=== PATIENT | female | born 2000 | race Two or more races ===

== ENCOUNTER 2024-04-14 12:48 | Emergency (ER) | payer OTHER, SELFPAY ==
--- NOTE | 2024-04-14 13:32 | XR_ITS ---
Examination: PA lateral chest 2 views TECHNIQUE: Upright PA lateral chest 2 views Exam date and time: April 14, 2024 1357 hours Comparison February 28, 2009 INDICATIONS: Coughing beginning one week ago. FINDINGS: Normal heart size Lungs are clear. Osseous structures are intact IMPRESSION: No active disease
[2024-04-14 13:35] VITALS: BP 138/88; PULSE 95; RESP 18; TEMP 37.1; O2SAT 98; BMI 30.2
--- NOTE | 2024-04-14 15:32 | EDNOTE_ITS ---
ED SOB =RME/HPI General Chief Complaint: Shortness of Breath/Dyspnea Stated Complaint: SOB CAN'T BREATH ; HX ASTHMA Time Seen by Provider: 04/14/24 13:10 Arrival date/time: 04/14/24 12:48 23-year-old female with history of asthma presents emergency department today for complaints of cough, congestion, wheezing, runny nose ongoing for last couple of days Limitations: no limitations Related Data Previous Rx's ?Medication ?Instructions ?Recorded cephalexin 500 mg capsule (Keflex) 500 mg PO BID #14 caps 08/07/19 albuterol sulfate 90 mcg/actuation 2 puff inhalation Q6H PRN 04/14/24 aerosol inhaler (Ventolin HFA) shortness of breath or wheezing #8.5 grams benzonatate 100 mg capsule 100 mg PO TID #14 caps 04/14/24 prednisone 10 mg tablet 30 mg (3 x 10 mg) PO BID 3 days 04/14/24 #18 tabs Allergies Allergy/AdvReac Type Severity Reaction Status Date / Time No Known Allergies Allergy Verified 04/14/24 12:49 Review of Systems Review of Systems Systems Reviewed: All systems reviewed, normal except as documented Constitutional Constitutional: Reports system reviewed and no additional complaints, except as documented, Denies fever(s) and Denies headache(s) Eyes Eyes: Reports system reviewed and no additional complaints, except as documented and Denies blurry vision ENT Ears, Nose, Mouth, and Throat: Reports system reviewed and no additional complaints, except as documented, Denies headache(s), Reports nasal congestion and Reports nasal discharge Cardiovascular Cardiovascular: Reports system reviewed and no additional complaints, except as documented, Denies chest pain and Denies dyspnea Respiratory Respiratory: Reports system reviewed and no additional complaints, except as documented, Reports chest congestion, Reports cough and Denies dyspnea Gastrointestinal Gastrointestinal: Reports system reviewed and no additional complaints, except as documented and Denies abdominal pain Integumentary/Breasts Skin/Breast: Reports system reviewed and no additional complaints, except as documented and Denies rash Neurologic Neurologic: Reports system reviewed and no additional complaints, except as documented, Reports as per HPI and Denies headache(s) Past Medical History Past Medical History NEUROLOGIC: Negative Neurological Disorders CARDIAC: Negative Cardiac Disorders Social History SMOKING STATUS: Never smoker ED Exam General Limitations: Present no limitations General appearance: Present alert and in no apparent distress Head Head exam: Present atraumatic Eye Eye exam: Present normal appearance, PERRL and EOMI; Absent conjunctival injection ENT ENT exam: Present normal exam, normal oropharynx and mucous membranes moist Neck Neck exam: Present normal inspection, full ROM and trachea midline Chest Chest inspection: Present normal inspection and symmetric chest wall rise Respiratory Respiratory exam: Present normal lung sounds bilaterally; Absent respiratory distress, wheezes, stridor, accessory muscle use or prolonged expiratory phase Cardiovascular Cardiovascular exam: Present regular rate, normal rhythm and normal heart sounds Abdominal Exam Abdominal exam: Present soft and normal bowel sounds Extremities Exam Extremities exam: Present normal inspection and full ROM Back Exam Back exam: Present normal inspection and full ROM Neurological Exam Neurological exam: Present alert, oriented X3 and CN II-XII intact Psychiatric Psychiatric exam: Present normal affect and normal mood Skin Skin exam: Present warm, dry, intact and normal color Course Quality Measures none Orders Category Date Time Status Bedside COVID-19 Antigen Test NOW Care 04/14/24 13:32 Completed Bedside Influenza A&B Antigen Test NOW Care 04/14/24 13:32 Completed XR chest 2V Stat Exams 04/14/24 13:32 Completed Vital Signs Vital signs: Vital Signs Temperature 98.7 F 04/14/24 13:35 Pulse Rate 95 04/14/24 13:35 Respiratory Rate 18 04/14/24 13:35 Blood Pressure 138/88 H 04/14/24 13:35 Pulse Oximetry (%) 98 04/14/24 13:35 Oxygen Delivery Method Room Air 04/14/24 13:35 o2 sat 98% r/a wnl Shortness of Breath / Dyspnea MDM Narrative MDM Narrative:: 23-year-old female with history of asthma presents emergency department today for complaints of cough, congestion, wheezing, runny nose ongoing for last couple of days On exam patient well-appearing patient does not appear ill or toxic in no acute distress patient has no active wheezing at this time no tachypnea no dyspnea no increased work of breathing Patient checked for flu and COVID both of which are negative chest x-ray obtained no pneumonic infiltrates noted Patient discharged home in no distress to follow-up with primary care doctor in the next 24 to 48 hours and for any worsening symptoms to return to the ER immediately Patient data External records reviewed:: [facility] previous records Clinical information provided by:: patient Social determinants that could affect healthcare access:: none Patient has the following chronic illnesses:: asthma How is presenting disease/condition affected by chronic disease/condition?: no chronic disease Evaluation data The following diagnostics were reviewed and interpreted by me:: lab results and radiology exam(s) Lab and/or radiology exams considered but not ordered:: Labs and radiology obtained Interpretation Summary: Reviewed by me Medications / Prescriptions Medications or Prescriptions considered but not ordered:: Given Rx Medication administrations:: Given Consultations Consultation(s) initiated? (list below): No Diagnosis Shortness of Breath Differential Diagnosis: acute exacerbation of chronic obstructive airways disease, congestive heart failure, community acquired pneumonia and asthma with exacerbation Most likely diagnosis given after review of the tests above:: Asthma Admission Indicated Admission indicated?: not indicated Admission Request Was there a request for admission?: No Disposition Plan Disposition Plan: Discharge Discharge Attestation Discharge Attestation: The patient and all family members were given an opportunity to ask questions and understood the discharge instructions. Discharge instructions specifically effects, indications for sooner follow up or return to the emergency department, and the expected course of current diagnosis. Patient condition: Stable Discharge Plan Plan Patient Disposition: HOME (Self Care) Disposition Comment: Stable Prescriptions/Referrals Prescriptions/Med Rec: New prednisone 10 mg tablet 30 mg PO BID 3 Days Qty: 18 0RF albuterol sulfate [Ventolin HFA] 90 mcg/actuation HFA aerosol inhaler 2 puff inhalation Q6H PRN (Reason: shortness of breath or wheezing) Qty: 8.5 0RF benzonatate 100 mg capsule 100 mg PO TID Qty: 14 0RF No Action cephalexin [Keflex] 500 mg capsule 500 mg PO BID Qty: 14 0RF Referrals: Javier Cabrera PA-C [Primary Care Provider] - In 1 week Problem List Clinical Impression: URI (upper respiratory infection) Patient/Caregiver Discharge Instructions Education Materials: ED URI, Viral, No Abx (Adult) Additional Instructions: Please follow up with your primary care doctor in the next 24-48hrs for any worsening symptoms return here immediately Print Language: Dominican Stand Alone Forms: Umm Award Info., Work/School Release, Patient Portal Info Letter Attestation Attestation The patient was seen by the midlevel practitioner. I, the co-signing physician, was present during the entire ER visit. While I did not physically examine the patient, I was available for consultation as needed.
== END 2024-04-14 15:38 | disposition home or self-care (01) ==
PROVIDERS: Emergency Provider Emergency Medicine; PCP Physician Assistant
DX: J06.9 Acute upper respiratory infection, unspecified (principal)
CPT/HCPCS: 71046; 87400; 87811; 99283

== ENCOUNTER 2024-11-29 19:25 | Emergency (ER) | payer OTHER, SELFPAY ==
[2024-11-29 19:27] VITALS: BMI 29.9
[2024-11-29 19:37] VITALS: BP 131/84; PULSE 90; RESP 18; TEMP 37.6; O2SAT 98
--- NOTE | 2024-11-29 19:52 | XR_ITS ---
Examination: CT maxillofacial, with contrast 2-D sagittal and coronal reconstructions. 3-D reconstructions Date and time of exam:November 29, 2024 2113 hours INDICATIONS: Surgery to remove tonsils and repair dated septum November 25, 2023, fever CTDI: vol (mGy):25.3 DLP: (mGycm):503 Technique: Multiple axial images maxillofacial region, 3.0 mm slice thickness, post intravenous injection 60 cc Isovue-370 cc Isovue 370. 2-D sagittal coronal reconstructions. 3-D reconstructions Low dose protocols were performed. One or more of the following dose reduction techniques were used; automated exposure control, adjustment of the mA and/or KV according to patient size, use of iterative reconstruction technique. Findings: The optic globes exhibit symmetry Prominent right ethmoid and right sphenoid sinusitis Maxillary antra are clear Fluid in the nasopharynx No tonsillar abscess Nasal septum is no longer angulated, fracture in its midportion without displacement Multiple submental and carotid triangle lymph nodes The larynx appears normal Symmetrical thyroid lobes IMPRESSION: Prominent right ethmoid and right sphenoid sinusitis Opacification in the right nasal airway Mild fluid in the nasopharynx, clinical correlation is advised Submental and carotid triangle lymphadenopathy, recommend three-month follow-up ultrasound soft tissue neck
--- NOTE | 2024-11-29 19:52 | XR_ITS ---
Examination: PA chest single view Technique upright PA chest single view Date and time: November 29, 2024 2156 hours INDICATIONS: Weakness and fever one week FINDINGS: Normal heart size. No pneumonia or pulmonary edema. The osseous structures are intact IMPRESSION: No active disease.
[2024-11-29 20:16] LABS: Basophils # (Auto) 0.1 Thou/mm3 (0.0-0.2); Basophils % (Auto) 0 % (0-2.5); Eosinophils # (Auto) 0.3 Thou/mm3 (0.0-0.5); Eosinophils % (Auto) 2 % (0-10); Hematocrit 36.3 % (36.0-46.0); Hemoglobin 12.9 g/dL (12.0-16.0); Immature Granulocytes Auto 0.04 Thou/mm3 (0.00-0.00); Lymphocytes # (Auto) 4.6 Thou/mm3 (1.0-4.8); Lymphocytes % (Auto) 33 % (10-50); Mean Corpuscular HGB Conc 35.5 g/dl (31.0-37.0); Mean Corpuscular Hemoglobin 29.9 pg (25.0-35.0); Mean Corpuscular Volume 84 fL (80-100); Monocytes # (Auto) 1.0 Thou/mm3 (0.0-0.8); Monocytes % (Auto) 7 % (0-12); Neutrophils # (Auto) 7.9 Thou/mm3 (1.8-7.7); Neutrophils % (Auto) 57 % (37-80); Nucleated Red Blood Cell # 0.00 Thou/mm3 (0.00-0.00); Nucleated Red Blood Cell % 0 /100 WBC (0); Platelet Count 400 Thou/mm3 (140-440); RDW Standard Deviation 40.5 fL (36.4-46.3); Red Blood Count 4.31 Miln/mm3 (4.00-5.20); White Blood Count 13.9 Thou/mm3 (3.6-11.0)
[2024-11-29 20:32] LABS: Alanine Aminotransferase 48 U/L (10-49); Albumin, Serum 5.1 gm/dL (3.5-5.0); Albumin/Globulin Ratio 2.0 (1.2-2.2); Alkaline Phosphatase 47 U/L (46-116); Anion Gap 13 (7-16); Aspartate Amino Transferase 29 U/L (0-34); BUN/Creatinine Ratio 7 Ratio (12-20); Bilirubin,Total 0.4 mg/dL (0.3-1.2); Blood Urea Nitrogen < 5 mg/dL (9-23); Calcium 9.8 mg/dL (8.3-10.6); Calcium (Corrected) 9.8 mg/dL (8.5-10.1); Carbon Dioxide 27.1 mMol/L (20.0-31.0); Chloride 100 mMol/L (98-107); Creatinine (Component) 0.7 mg/dL (0.6-1.3); Estimated Creatinine Clearance 115.0 mL/min (>60); Globulin 2.5 gm/dL (2.3-3.5); Glucose 103 mg/dL (74-106); Osmolality,Calculated 276 (275-295); Potassium 3.2 mMol/L (3.4-5.1); Sodium 140 mMol/L (136-145); Total Protein 7.6 gm/dL (5.7-8.2); eGFR > 60 See Note
[2024-11-29 20:36] LABS: Collection Type, Urine Voided
[2024-11-29 20:40] LABS: Bacteria,Urine Rare; Bilirubin,Urine Negative (Negative); Blood,Urine 1+ (Negative); Clarity,Urine Clear (Clear/Hazy); Color,Urine Colorless (Lt Yel-Yel); Glucose, Urine Negative (Negative); Ketones,Urine Negative (Negative); Leukocyte Esterase,Urine Negative (Negative); Nitrite,Urine Negative (Negative); PH,Urine 6.0 (5.0-7.0); Protein,Urine Negative (Neg - Trace); RBC,Urine 1 /hpf (0-3); Specific Gravity,Urine 1.008 (1.001-1.035); Squamous Epithelial Cell,Urine 2 /hpf (0-5); Urobilinogen,Urine Negative mg/dL (0.0-1.0); WBC,Urine 1 /hpf (0-5)
[2024-11-29 20:56] LABS: HCG,Qualitative Serum Negative
[2024-11-29] MEDS: SODIUM CHLORIDE 0.9% 1000 ML 1,000 ML 999 ML IV (22:31)
[2024-11-29 22:32] VITALS: TEMP 37.1
--- NOTE | 2024-11-29 22:33 | PD.EDFEVER ---
ED Fever RME/HPI General Chief Complaint: Fever Stated Complaint: , FEVER, HEAD PRESSURE Time Seen by Provider: 11/29/24 19:33 Source: patient Arrival date/time: 11/29/24 19:25 This is a case of 24-year-old female who came in in the emergency room due to fever today ranging 101 patient had a deviated nasal septum surgery and tonsillectomy last Saturday and currently taking amoxicillin patient was fine after surgery until today patient started to have fever and chills persistence of the symptoms this patient decided to sought consult here in the emergency Limitations: no limitations Related Data Previous Rx's ?Medication ?Instructions ?Recorded cephalexin 500 mg capsule (Keflex) 500 mg PO BID #14 caps 08/07/19 albuterol sulfate 90 mcg/actuation 2 puff inhalation Q6H PRN 04/14/24 aerosol inhaler (Ventolin HFA) shortness of breath or wheezing #8.5 grams benzonatate 100 mg capsule 100 mg PO TID #14 caps 04/14/24 amoxicillin 875 mg-potassium 1 tab PO BID 10 days #20 tabs 11/29/24 clavulanate 125 mg tablet ibuprofen 800 mg tablet 800 mg PO Q8H PRN pain #20 tabs 11/29/24 ondansetron 4 mg disintegrating 4 mg PO Q8H PRN nausea and 11/29/24 tablet vomiting #20 tabs Allergies Allergy/AdvReac Type Severity Reaction Status Date / Time No Known Allergies Allergy Verified 11/29/24 19:26 Review of Systems Review of Systems Systems Reviewed: All systems reviewed, normal except as documented Constitutional Constitutional: Reports system reviewed and no additional complaints, except as documented, Reports as per HPI, Denies anorexia, Denies body ache(s), Reports chills, Denies daytime sleepiness, Denies difficulty sleeping, Denies excessive sweating, Denies fatigue, Reports fever(s), Denies frequent falls, Reports headache(s), Denies increased appetite, Denies poor appetite, Denies lethargy, Denies malaise, Denies night sweats, Denies snoring, Denies stops breathing during sleep, Denies weakness, Denies weight gain and Denies weight loss ENT Ears, Nose, Mouth, and Throat: Reports system reviewed and no additional complaints, except as documented, Reports headache(s), Denies nasal discharge, Denies nasal obstruction, Denies nasal trauma, Denies neck mass, Denies neck pain, Denies nose pain, Denies odynophagia, Denies post nasal drip, Denies sinus pain, Denies sinus pressure, Denies sore throat, Denies throat swelling, Denies tinnitus, Denies tongue swelling and Denies vertigo Cardiovascular Cardiovascular: Reports system reviewed and no additional complaints, except as documented, Reports as per HPI and Denies dyspnea Respiratory Respiratory: Reports system reviewed and no additional complaints, except as documented, Reports as per HPI, Denies cough, Denies dyspnea and Denies snoring Gastrointestinal Gastrointestinal: Reports system reviewed and no additional complaints, except as documented, Reports as per HPI and Denies odynophagia Musculoskeletal Musculoskeletal: Denies neck pain Neurologic Neurologic: Reports system reviewed and no additional complaints, except as documented, Denies frequent falls, Reports headache(s), Denies vertigo and Denies weakness Endocrine Endocrine: Denies excessive sweating and Denies fatigue Allergic/Immunologic Allergic/Immunologic: Denies throat swelling and Denies tongue swelling Past Medical History Past Medical History NEUROLOGIC: Negative Neurological Disorders CARDIAC: Negative Cardiac Disorders RESPIRATORY: Positive Asthma GENITOURINARY: Negative Renal Disease ENDOCRINE: Negative Diabetes Mellitus Type 2 HEMATOLOGIC: Negative Sickle Cell Disease Social History SMOKING STATUS: Never smoker Physical Exam General Limitations: no limitations General appearance: alert, in no apparent distress and other (Patient is awake alert oriented not in distress nontoxic looking well-hydrated well-nourished) Head Head exam: atraumatic, normocephalic and normal inspection Eye Eye exam: Present normal appearance, PERRL, EOMI and other (no pappieldema) ENT ENT exam: Present normal exam, normal oropharynx, mucous membranes moist and other (Ear is normal noted a stent under both nostrils unable to visualize turbinates no bleeding no frontal or maxillary sinus tenderness no nasal polyps patient throat no bleeding absence of tonsils uvula midline neck red pharynx no drooling of saliva no muffled voice) Neck Neck exam: Present normal inspection, full ROM, trachea midline and other (Negative for meningeal sign) Chest Chest inspection: Present normal inspection and symmetric chest wall rise Respiratory Respiratory exam: Present normal lung sounds bilaterally; Absent respiratory distress, wheezes, stridor, accessory muscle use or prolonged expiratory phase Cardiovascular Cardiovascular exam: Present regular rate, normal rhythm and normal heart sounds; Absent bradycardia, tachycardia, irregular rhythm, systolic murmur or diastolic murmur Abdominal Exam Abdominal exam: Present soft and normal bowel sounds; Absent distention, tenderness, guarding, rebound, rigidity, diminished bowel sounds or hyperactive bowel sounds Extremities Exam Extremities exam: Present normal inspection and full ROM Back Exam Back exam: Present normal inspection and full ROM Neurological Exam Neurological exam: Present alert, oriented X3, CN II-XII intact, normal gait and reflexes normal; Absent motor sensory deficit Psychiatric Psychiatric exam: Present normal affect and normal mood Skin Skin exam: Present warm, dry, intact and normal color ED Exam General Limitations: Present no limitations General appearance: Present alert, in no apparent distress and other (Patient is awake alert oriented not in distress nontoxic looking well-hydrated well-nourished) Head Head exam: Present atraumatic, normocephalic and normal inspection Eye Eye exam: Present normal appearance, PERRL, EOMI and other (no pappieldema) ENT ENT exam: Present normal exam, normal oropharynx, mucous membranes moist and other (Ear is normal noted a stent under both nostrils unable to visualize turbinates no bleeding no frontal or maxillary sinus tenderness no nasal polyps patient throat no bleeding absence of tonsils uvula midline neck red pharynx no drooling of saliva no muffled voice) Neck Neck exam: Present normal inspection, full ROM, trachea midline and other (Negative for meningeal sign) Chest Chest inspection: Present normal inspection and symmetric chest wall rise Respiratory Respiratory exam: Present normal lung sounds bilaterally; Absent respiratory distress, wheezes, stridor, accessory muscle use or prolonged expiratory phase Cardiovascular Cardiovascular exam: Present regular rate, normal rhythm and normal heart sounds; Absent bradycardia, tachycardia, irregular rhythm, systolic murmur or diastolic murmur Abdominal Exam Abdominal exam: Present soft and normal bowel sounds; Absent distention, tenderness, guarding, rebound, rigidity, diminished bowel sounds or hyperactive bowel sounds Extremities Exam Extremities exam: Present normal inspection and full ROM Back Exam Back exam: Present normal inspection and full ROM Neurological Exam Neurological exam: Present alert, oriented X3, CN II-XII intact, normal gait and reflexes normal; Absent motor sensory deficit Psychiatric Psychiatric exam: Present normal affect and normal mood Skin Skin exam: Present warm, dry, intact and normal color Course Quality Measures none Orders Category Date Time Status CT Screening NOW Care 11/29/24 19:52 Active IV [Insert IV] NOW Care 11/29/24 20:[address] facial bones w con Stat Exams 11/29/24 19:52 Completed XR chest 1V portable Stat Exams 11/29/24 19:52 Completed CBC Stat Lab 11/29/24 20:04 Completed CMP [Comprehensive Metabolic Panel] Stat Lab 11/29/24 20:04 Completed HCG,Qualitative Serum Stat Lab 11/29/24 20:04 Completed Urinalysis Stat Lab 11/29/24 20:23 Completed Ketorolac Inj [Toradol Inj] Med 11/29/24 22:36 Discontinued 30 mg IVP X1 ONE Potassium Chloride [K-Dur] Med 11/29/24 22:32 Discontinued 40 meq PO X1 ONE Sodium Chloride 0.9% 1000 ml [Ns] 1,000 ml Med 11/29/24 22:27 Active IV 999 mls/hr cefTRIAXone/D5w 1gm IV premix [Rocephin/D5w 1gm IV Med 11/29/24 22:28 Active premix] 1 gm in 50 ml IV X1 Vital Signs Vital signs: Vital Signs Temperature 99.6 F 11/29/24 19:37 Pulse Rate 90 11/29/24 19:37 Respiratory Rate 18 11/29/24 19:37 Blood Pressure 131/84 H 11/29/24 19:37 Pulse Oximetry (%) 98 11/29/24 19:37 Oxygen Delivery Method Room Air 11/29/24 19:37 Patient is afebrile not tachycardic not tachypneic BP stable not hypoxic oxygen saturation is 98% in room air Fever MDM Narrative MDM Narrative:: This is a case of 24-year-old female who came in in the emergency room due to fever today ranging 101 patient had a deviated nasal septum surgery and tonsillectomy last Saturday and currently taking amoxicillin patient was fine after surgery until today patient started to have fever and chills persistence of the symptoms this patient decided to sought consult here in the emergency patient is awake alert oriented not in distress nontoxic looking well-hydrated well-nourished negative for meningeal sign vital signs are patient is afebrile nontachycardic nontachypneic BP stable not hypoxic oxygen saturation is 96% HEENT exam noted a stent on both nostrils no bleeding no nasal swelling no frontal or maxillary tenderness absence of tonsils but no bleeding no lesion in the mouth no drooling of saliva no hoarseness or muffled voice lungs sound is clear no crackles no rales no retraction no stridor abdominal soft no guarding no rebound no rigidity overall patient has no signs and symptoms sepsis no signs and symptoms of hypoxia no signs and symptoms of bacteremia blood test showed leukocytosis at 13.9 possibly due to sinusitis patient is not anemic platelets is normal patient potassium is 3.2 patient was given potassium oral here and she will follow-up with PCP to repeat the level as an outpatient patient sodium is normal kidney and liver function is normal urinalysis is normal chest x-ray is normal patient was given a bolus of normal saline and the Rocephin for sinusitis patient CT scan of the facial no abscess but with sinusitis and lymphadenopathy patient was discharged with Augmentin ibuprofen and Zofran for fever and nausea patient will follow-up with his surgeon tomorrow for reevaluation and follow-up patient will follow up with PCP in 2 days for evaluation and for any worsening symptoms she will return in the emergency room immediately or call 911 Patient was discharged with comfortable condition walking with stable gait. Patient verbalized no further complains explained diagnosis and answered patient question. Patient is comfortable with the proposed management plan including the need to follow up with his/her primary care physician and any specialist if applicable Discussed patient for any urgent condition or worsening sx, He/She needed to go to emergency room immediately or call 911. Patient acknowledge the responsibility to follow up as instructed and to monitor her/his symptoms. For any persistence of the symptoms for more than 3-5 days return precaution advised. Discussed the result of the test and was given printed discharge instruction Patient data External records reviewed:: [facility] previous records Clinical information provided by:: patient Social determinants that could affect healthcare access:: none Patient has the following chronic illnesses:: None How is presenting disease/condition affected by chronic disease/condition?: no chronic disease Evaluation data The following diagnostics were reviewed and interpreted by me:: lab results and radiology exam(s) Lab and/or radiology exams considered but not ordered:: Reviewed Interpretation Summary: Reviewed Medications / Prescriptions Medications or Prescriptions considered but not ordered:: Given Medication administrations:: Medication Administration History Sodium Chloride (Ns) 1,000 mls @ 999 mls/hr IV .Q1H1M ONE Stop: 11/29/24 23:27 Last Admin: 11/29/24 22:31 Dose: 999 mls/hr Documented By: CVL Ceftriaxone Sodium/Dextrose (Rocephin/D5w 1gm Iv Premix) 1 gm in 50 mls @ 100 mls/hr IV X1 ONE Stop: 11/29/24 22:57 Last Admin: 11/29/24 22:35 Dose: 100 mls/hr Documented By: CVL Discontinued Medications Ketorolac Tromethamine (Ketorolac Inj 30 Mg/Ml Vial) 30 mg IVP X1 ONE Stop: 11/29/24 22:37 Potassium Chloride (Potassium Chloride 20 Meq Tabcr) 40 meq PO X1 ONE Stop: 11/29/24 22:33 Given Consultations Consultation(s) initiated? (list below): No Diagnosis Fever Differential Diagnosis: fever of unknown origin, pyelonephritis, viral infection and influenza Most likely diagnosis given after review of the tests above:: Acute sinus infection Admission Indicated Admission indicated?: not indicated Explain why admission is indicated or not indicated:: Not indicated Admission Request Was there a request for admission?: No Admission Attestation Admission request attestation: Not indicated Disposition Plan Disposition Plan: Discharge Discharge Attestation Discharge Attestation: The patient and all family members were given an opportunity to ask questions and understood the discharge instructions. Discharge instructions specifically effects, indications for sooner follow up or return to the emergency department, and the expected course of current diagnosis. Patient condition: Stable Discharge Plan Plan Patient Disposition: HOME (Self Care) Patient condition on transfer: Stable Prescriptions/Referrals Prescriptions/Med Rec: New amoxicillin-pot clavulanate 875-125 mg tablet 1 tab PO BID 10 Days Qty: 20 0RF ibuprofen 800 mg tablet 800 mg PO Q8H PRN (Reason: pain) Qty: 20 0RF ondansetron 4 mg tablet,disintegrating 4 mg PO Q8H PRN (Reason: nausea and vomiting) Qty: 20 0RF No Action cephalexin [Keflex] 500 mg capsule 500 mg PO BID Qty: 14 0RF albuterol sulfate [Ventolin HFA] 90 mcg/actuation HFA aerosol inhaler 2 puff inhalation Q6H PRN (Reason: shortness of breath or wheezing) Qty: 8.5 0RF benzonatate 100 mg capsule 100 mg PO TID Qty: 14 0RF Problem List Clinical Impression: Fever, Headache, Acute sinus infection, Hypokalemia Patient/Caregiver Discharge Instructions Education Materials: Self-Care for Headaches, ED FUO Adult, ED Hypokalemia, ED Sinusitis (Antibiotic Treatment) Additional Instructions: Follow-up with your primary care physician in 2 days for reevaluation call your surgeon tomorrow for reevaluation and follow-up worsening symptoms or any emergent concern call 911 or go to the nearest emergency room check your temperature every 4 hours and take Tylenol Motrin as needed for fever keep hydrated increase water intake finish the course of antibiotic stop taking amoxicillin follow-up with your primary care physician to repeat the level of potassium as an outpatient it when every day Print Language: Faroese Stand Alone Forms: Umm Award Info., Patient Portal Info Letter PA/SUPERVISOR WET ROOM Supervising Physician PA/ED Supervising Physician: dr [email or web address]
[2024-11-29] MEDS: cefTRIAXone/D5w 1gm IV premix 1 GM/50 ML BAG IV (22:35)
[2024-11-29] MEDS: KETOROLAC INJ 30 MG/ML VIAL IVP (22:50)
[2024-11-29 23:44] VITALS: BP 128/72; PULSE 76; RESP 18; TEMP 37.2; O2SAT 98
== END 2024-11-29 23:45 | disposition home or self-care (01) ==
LOC: SERX 23:16
PROVIDERS: Nurse Practitioner Family; Emergency Provider Emergency Medicine
DX: J01.90 Acute sinusitis, unspecified (principal); E87.6 Hypokalemia; R51.9 Headache, unspecified; R50.9 Fever, unspecified; J32.3 Chronic sphenoidal sinusitis; R59.1 Generalized enlarged lymph nodes
CPT/HCPCS: 36415; 70487; 71045; 80053; 81001; 84703; 85025; 96361; 96365; 96375; 99283; A4649; J0696; J1885; J7030; Q9967; A9270

== ENCOUNTER 2025-01-25 06:25 | Emergency (ER) | payer OTHER, SELFPAY ==
[2025-01-25 06:27] VITALS: BMI 30.9
[2025-01-25 06:30] VITALS: BP 122/75; PULSE 83; RESP 19; TEMP 36.6; O2SAT 98
--- NOTE | 2025-01-25 06:45 | EDNOTE_ITS ---
ED Abdominal Pain RME/HPI General Chief Complaint: Abdominal Pain Stated complaint: PAIN IN URINATION, ABD PAIN Time seen by provider: 01/25/25 06:29 Arrival date/time: 01/25/25 06:25 24-year-old female with no known medical history presents to the emergency room with a chief complaint of dysuria and left lower quadrant abdominal pain x 2 days Source: patient Mode of arrival: ambulatory Limitations: no limitations Related Data Previous Rx's ?Medication ?Instructions ?Recorded cephalexin 500 mg capsule (Keflex) 500 mg PO BID #14 c aps 08/07/19 albuterol sulfate 90 mcg/actuation 2 puff inhalation Q 6H PRN 04/14/24 aerosol inhaler (Ventolin HFA) shortness of breath or wheezing #8.5 grams benzonatate 100 mg capsule 100 mg PO TID #14 caps 03/21 11/10 ibuprofen 800 mg tablet 800 mg PO Q8H PRN pain #20 t abs 11/29/24 ondansetron 4 mg disintegrating 4 mg PO Q8H PRN nausea and 11/29/24 tablet vomiting #20 tabs nitrofurantoin 100 mg PO Q12H 5 days #10 ca ps 01/25/25 monohydrate/macrocrystals 100 mg capsule (Macrobid) phenazopyridine 200 mg tablet 200 mg PO TID 6 doses #6 tabs 01/25/25 (Pyridium) Allergies Allergy/AdvReac Type Severity Reaction Status Date / Time No Known Allergies Allergy Verified 01/25/25 06:26 Review of Systems Review of Systems Systems Reviewed: All systems reviewed, normal except as documented Constitutional Constitutional: Reports system reviewed and no additional complaints, except as documented, Denies fatigue, Denies fever(s), Denies headache(s) and Denies weakness Eyes Eyes: Reports system reviewed and no additional complaints, except as documented, Denies blurry vision and Denies change in vision ENT Ears, Nose, Mouth, and Throat: Reports system reviewed and no additional complaints, except as documented, Denies otalgia, Denies headache(s), Denies nasal congestion, Denies throat swelling and Denies vertigo Cardiovascular Cardiovascular: Reports system reviewed and no additional complaints, except as documented, Denies chest pain, Denies dyspnea and Denies dyspnea on exertion Respiratory Respiratory: Reports system reviewed and no additional complaints, except as documented, Denies chest congestion, Denies cough, Denies dyspnea, Denies dyspnea on exertion and Denies wheezing Gastrointestinal Gastrointestinal: Reports system reviewed and no additional complaints, except as documented, Denies abdominal pain, Denies cramping, Denies nausea and Denies vomiting Genitourinary Genitourinary: Reports system reviewed and no additional complaints, except as documented, Reports dysuria and Reports pelvic pain Musculoskeletal Musculoskeletal: Reports system reviewed and no additional complaints, except as documented and Denies back pain Integumentary/Breasts Skin/Breast: Reports system reviewed and no additional complaints, except as documented and Denies wounds Neurologic Neurologic: Reports system reviewed and no additional complaints, except as documented, Denies confusion, Denies headache(s), Denies lack of coordination, Denies vertigo and Denies weakness Psychiatric Psychiatric: Reports system reviewed and no additional complaints, except as documented, Denies anxiety, Denies confusion, Denies depression, Denies paranoia, Denies suicidal ideation and Denies tactile hallucinations Endocrine Endocrine: Reports system reviewed and no additional complaints, except as documented and Denies fatigue Hematologic/Lymphatic Hematologic/Lymphatic: Reports system reviewed and no additional complaints, except as documented and Denies lymphadenopathy Allergic/Immunologic Allergic/Immunologic: Reports system reviewed and no additional complaints, except as documented, Denies throat swelling, Denies urticaria and Denies wheezing ED Exam General Limitations: Present no limitations General appearance: Present alert and in no apparent distress Head Head exam: Present atraumatic Eye Eye exam: Present normal appearance, PERRL and EOMI ENT ENT exam: Present normal exam, normal oropharynx and mucous membranes moist Neck Neck exam: Present normal inspection, full ROM and trachea midline Chest Chest inspection: Present normal inspection and symmetric chest wall rise Respiratory Respiratory exam: Present normal lung sounds bilaterally; Absent respiratory distress, wheezes, stridor, accessory muscle use or prolonged expiratory phase Cardiovascular Cardiovascular exam: Present regular rate, normal rhythm and normal heart sounds; Absent bradycardia, tachycardia or irregular rhythm Abdominal Exam Abdominal exam: Present soft, tenderness and normal bowel sounds Abdominal tenderness: Present LLQ, suprapubic and mild Extremities Exam Extremities exam: Present normal inspection and full ROM Back Exam Back exam: Present normal inspection and full ROM Neurological Exam Neurological exam: Present alert, oriented X3 and CN II-XII intact Psychiatric Psychiatric exam: Present normal affect and normal mood Skin Skin exam: Present warm, dry, intact and normal color Course Quality Measures none Orders Category Date Time Status CT abdomen pelvis wo con Stat Exams 01/25/25 09:25 Completed CBC Stat Lab 01/25/25 08:35 Completed CMP [Comprehensive Metabolic Panel] Stat Lab 01/25/25 08:35 Completed HCG Qualitative,Urine Stat Lab 01/25/25 06:55 Completed Lipase Stat Lab 01/25/25 08:35 Completed UA [Urinalysis] Stat Lab 01/25/25 06:55 Completed Urine Culture Stat Lab 01/25/25 06:55 Received cefTRIAXone [Rocephin] 1,000 mg Med 01/25/25 10:34 Ordered Lidocaine 1% 20 ml [Xylocaine 1% 20 ML] 2.1 ml IM X1 Vital Signs Vital signs: Vital Signs Temperature 98 F 01/25/25 06:30 Pulse Rate 83 01/25/25 06:30 Respiratory Rate 19 01/25/25 06:30 Blood Pressure 122/75 01/25/25 06:30 Pulse Oximetry (%) 98 01/25/25 06:30 Oxygen Delivery Method Room Air 01/25/25 06:30 Abdominal Pain MDM MDM Narrative MDM Narrative:: 24-year-old female with no known medical history presents to the emergency room with a chief complaint of dysuria and left lower quadrant abdominal pain x 2 days Patient is hemodynamically stable and in no apparent distress. Patient is not tachycardic not tachypneic and afebrile Physical examination shows some mild left lower quadrant abdominal pain palpation. CBC CMP shows some leukocytosis. Urinalysis shows a urinary tract infection and hematuria. A CT of the abdomen and pelvis was then ordered and was negative for any pyelonephritis or any other acute findings. A shot of antibiotics and oral antibiotics sent to the patient's pharmacy Patient was given strict return precautions to return for any signs of fever flank pain dysuria or worsening symptoms Patient was discharged and educated to follow-up with primary care provider in the next 24 to 48 hours and return to the emergency room for any evidence of worsening signs or symptoms Patient data External records reviewed:: [facility] previous records Clinical information provided by:: patient Social determinants that could affect healthcare access:: none Patient has the following chronic illnesses:: No chronic illness How is presenting disease/condition affected by chronic disease/condition?: no chronic disease Evaluation data The following diagnostics were reviewed and interpreted by me:: lab results and radiology exam(s) Lab and/or radiology exams considered but not ordered:: Labs and radiology exams considered and ordered Interpretation Summary: CT abdomen and pelvis-Findings: Diffuse fatty infiltration throughout the liver, no focal liver or splenic lesions Contracted gallbladder No pancreatic or adrenal mass. No renal or ureteral calculi, no hydronephrosis Aorta normal size No bowel obstruction 10 mm fat-containing umbilical hernia Absent appendix No bowel obstruction No diverticulitis Partially retroverted uterus No bladder mass or bladder calculi Osseous structures are intact IMPRESSION: Hepatomegaly 20 cm with diffuse fatty infiltration throughout the liver No renal or ureteral calculi, no hydronephrosis Absent appendix No bowel obstruction or diverticulitis No bladder mass or bladder calculi Medications / Prescriptions Medications or Prescriptions considered but not ordered:: Medication not given Medication administrations:: Medication Administration History Ceftriaxone Sodium 1,000 mg/ (Lidocaine HCl 2.1 ml) 0 mg IM X1 ONE Stop: 01/25/25 10:35 Medication not given Consultations Consultation(s) initiated? (list below): No Diagnosis Differential diagnosis abdominal pain: abdominal pain, acute appendicitis, cons tipation, gastroenteritis and other (Urinary tract infection) Most likely diagnosis given after review of the tests above:: Urinary tract infection Admission Indicated Admission indicated?: not indicated Admission Request Was there a request for admission?: No Disposition Plan Disposition Plan: Discharge Discharge Attestation Discharge Attestation: The patient and all family members were given an opportunity to ask questions and understood the discharge instructions. Discharge instructions specifically effects, indications for sooner follow up or return to the emergency department, and the expected course of current diagnosis. Patient condition: Stable Discharge Plan Plan Patient Disposition: HOME (Self Care) Discharge Disposition comment: Stable Prescriptions/Referrals Prescriptions/Med Rec: New phenazopyridine [Pyridium] 200 mg tablet 200 mg PO TID Qty: 6 0RF nitrofurantoin monohyd/m-cryst [Macrobid] 100 mg capsule 100 mg PO Q12H 5 Days Qty: 10 0RF Rx Instructions: must administer with a meal/food No Action cephalexin [Keflex] 500 mg capsule 500 mg PO BID Qty: 14 0RF albuterol sulfate [Ventolin HFA] 90 mcg/actuation HFA aerosol inhaler 2 puff inhalation Q6H PRN (Reason: shortness of breath or wheezing) Qty: 8.5 0RF benzonatate 100 mg capsule 100 mg PO TID Qty: 14 0RF ibuprofen 800 mg tablet 800 mg PO Q8H PRN (Reason: pain) Qty: 20 0RF ondansetron 4 mg tablet,disintegrating 4 mg PO Q8H PRN (Reason: nausea and vomiting) Qty: 20 0RF Referrals: Javier Cabrera PA-C [Primary Care Provider] - In 1 week Problem List Clinical Impression: Urinary tract infection Patient/Caregiver Discharge Instructions Education Materials: Hematuria: Possible Causes, ED CYSTITIS Female Adult Additional Instructions: Please follow-up with your primary care provider in the next 24 to 48 hours Antibiotics are sent to your pharmacy please pick them up and take them as indicated For any evidence of worsening signs or symptoms please return to the emergency room immediately Print Language: Irish Stand Alone Forms: Umm Award Info., Work/School Release, Patient Portal Info Letter CANDICE/ED Supervising Physician CANDICE/ED Supervising Physician: Dr. Garces
[2025-01-25 07:49] LABS: Collection Type, Urine Clean Catch; Squamous Epithelial Cell,Urine 0 /hpf (0-5)
[2025-01-25 08:17] LABS: Bilirubin,Urine Negative (Negative); Blood,Urine 3+ (Negative); Glucose, Urine Negative (Negative); Ketones,Urine 1+ (Negative); Leukocyte Esterase,Urine Positive (Negative); Nitrite,Urine Negative (Negative); PH,Urine 6.0 (5.0-7.0); Protein,Urine 2+ (Neg - Trace); RBC,Urine 45421 /hpf (0-3); Specific Gravity,Urine 1.023 (1.001-1.035); Urobilinogen,Urine Negative mg/dL (0.0-1.0); WBC,Urine 831 /hpf (0-5)
[2025-01-25 08:18] LABS: Clarity,Urine Bloody (Clear/Hazy); Color,Urine Drk-Red (Lt Yel-Yel)
[2025-01-25 08:21] LABS: HCG Qualitative,Urine Negative
[2025-01-25 08:48] LABS: Basophils # (Auto) 0.1 Thou/mm3 (0.0-0.2); Basophils % (Auto) 0 % (0-2.5); Eosinophils # (Auto) 0.6 Thou/mm3 (0.0-0.5); Eosinophils % (Auto) 4 % (0-10); Hematocrit 39.6 % (36.0-46.0); Hemoglobin 13.2 g/dL (12.0-16.0); Immature Granulocytes Auto 0.05 Thou/mm3 (0.00-0.00); Lymphocytes # (Auto) 3.1 Thou/mm3 (1.0-4.8); Lymphocytes % (Auto) 20 % (10-50); Mean Corpuscular HGB Conc 33.3 g/dl (31.0-37.0); Mean Corpuscular Hemoglobin 29.3 pg (25.0-35.0); Mean Corpuscular Volume 88 fL (80-100); Monocytes # (Auto) 1.0 Thou/mm3 (0.0-0.8); Monocytes % (Auto) 7 % (0-12); Neutrophils # (Auto) 11.1 Thou/mm3 (1.8-7.7); Neutrophils % (Auto) 70 % (37-80); Nucleated Red Blood Cell # 0.00 Thou/mm3 (0.00-0.00); Nucleated Red Blood Cell % 0 /100 WBC (0); Platelet Count 323 Thou/mm3 (140-440); RDW Standard Deviation 41.2 fL (36.4-46.3); Red Blood Count 4.51 Miln/mm3 (4.00-5.20); White Blood Count 16.0 Thou/mm3 (3.6-11.0)
[2025-01-25 09:08] LABS: Alanine Aminotransferase 112 U/L (10-49); Albumin, Serum 4.6 gm/dL (3.5-5.0); Albumin/Globulin Ratio 1.8 (1.2-2.2); Alkaline Phosphatase 45 U/L (46-116); Anion Gap 11 (7-16); Aspartate Amino Transferase 59 U/L (0-34); BUN/Creatinine Ratio 15 Ratio (12-20); Bilirubin,Total 0.3 mg/dL (0.3-1.2); Blood Urea Nitrogen 9 mg/dL (9-23); Calcium 10.1 mg/dL (8.3-10.6); Calcium (Corrected) 10.1 mg/dL (8.5-10.1); Carbon Dioxide 26.3 mMol/L (20.0-31.0); Chloride 103 mMol/L (98-107); Creatinine (Component) 0.6 mg/dL (0.6-1.3); Estimated Creatinine Clearance 136.2 mL/min (>60); Globulin 2.6 gm/dL (2.3-3.5); Glucose 106 mg/dL (74-106); Lipase 36 U/L (12-53); Osmolality,Calculated 278 (275-295); Potassium 4.0 mMol/L (3.4-5.1); Sodium 140 mMol/L (136-145); Total Protein 7.2 gm/dL (5.7-8.2); eGFR > 60 See Note
--- NOTE | 2025-01-25 09:25 | XR_ITS ---
Examination: CT abdomen and pelvis without contrast. Coronal 3-D reconstructions. Sagittal 2-D reconstructions. Date and time of exam:January 25, 2025 1002 hours, comparison November 08, 2020 INDICATIONS: Bilateral flank pain and burning sensation with urination CTDI: vol (mGy): 8.77 DLP: (mGycm): 487 Technique: Axial images of the abdomen have been obtained, 3 mm slice thickness Intravenous contrast material has not been administered. Low dose protocols were performed. One or more of the following dose reduction techniques were used; automated exposure control, adjustment of the mA and/or KV according to patient size, use of iterative reconstruction technique. Findings: Diffuse fatty infiltration throughout the liver, no focal liver or splenic lesions Contracted gallbladder No pancreatic or adrenal mass. No renal or ureteral calculi, no hydronephrosis Aorta normal size No bowel obstruction 10 mm fat-containing umbilical hernia Absent appendix No bowel obstruction No diverticulitis Partially retroverted uterus No bladder mass or bladder calculi Osseous structures are intact IMPRESSION: Hepatomegaly 20 cm with diffuse fatty infiltration throughout the liver No renal or ureteral calculi, no hydronephrosis Absent appendix No bowel obstruction or diverticulitis No bladder mass or bladder calculi
[2025-01-25] MEDS: cefTRIAXone 1,000 MG, LIDOCAINE 1% 20 ML 2.1 ML IM (10:44)
== END 2025-01-25 10:48 | disposition home or self-care (01) ==
PROVIDERS: Emergency Provider Nurse Practitioner Family; PCP Physician Assistant
DX: N39.0 Urinary tract infection, site not specified (principal); R31.9 Hematuria, unspecified; K76.0 Fatty (change of) liver, not elsewhere classified
CPT/HCPCS: 36415; 74176; 80053; 81001; 81025; 83690; 85025; 87086; 96372; 99283; J0696; J3490

== ENCOUNTER 2025-04-20 09:17 | Outpatient (AMB) | payer BC, SELFPAY ==
[2025-04-20 09:45] VITALS: BP 116/75; PULSE 78; RESP 18; TEMP 36.7; O2SAT 97; BMI 31.1
--- NOTE | 2025-04-20 09:45 | GYNCLNT_ITS ---
Vital Signs 04/20/25 09:45 Height 1.57 m Height Method Stated Weight 76.657 kg Weight Measurement Method Standing Scale BMI 31.1 BP 116/75 Blood Pressure Source Automatic Cuff Blood Pressure Location Right Upper Arm Position Sitting Respiration 18 Pulse 78 Pulse Source Monitor Temp 98.1 F Temp Source Temporal Artery Scan Pulse Oximetry (%) 97 Oxygen Delivery Method Room Air Allergies/Home Meds Allergies & Medications Allergies No Known Allergies Allergy (Verified 04/20/25 09:45) Intake Visit Data Collection New Patient or Established: Established Patient (seen at [facility] within 3 years) Reason for Visit:: REFERRAL PCOS Seen by Clinical Staff ONLY (RN/MA): No Forms Builder Required: No Do You Feel Safe at Home: Yes Authorities Contacted: N/A PCP or OBGYN visit in last 3 months: No Hx Now: No Are you currently on any form of Control: No Last menstrual period: 02/16/25 Pain Present Currently: No Pain Scale Used: Retana-Roberto/Numerical Pain scale:: 0 Smoking Status Smoking Status: Never smoker Immunizations Flu Vaccine in the Last 12 Months: No Flu Vaccine Exclusion Criteria: No Exclusion Criteria 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 1. Little interest or pleasure in doing things: not at all 2. Feeling down, depressed, or hopeless: not at all Total score: 0 PHQ-9 3. Trouble falling or staying asleep, or sleeping too much: Not at all 4. Feeling tired or having little energy: Not at all 5. Poor appetite or overeating: Not at all 6. Feeling bad about yourself - or that you are a failure or have let yourself or your family down: Not at all 7. Trouble concentrating on things, such as reading the newspaper or watching television: Not at all 8. Moving or speaking so slowly that other people could have noticed? - Or the opposite - being so fidgety or restless that you have been moving around a lot more than usual: not at all 9. Thoughts that you would be better off or of hurting yourself in some way: Not at all Total score: 0 If you checked off any problems, how difficult have these problems made it for you to do your work, take care of things at home, or get along with other people?: not difficult at all Source: Developed by Drs. Amrit Kiran, Amber Blas, Mehrdad Pardo and colleagues, with an educational olman from [employer]. Depression screen completed yes Social History Living Situation History Marital Status: Single Lives With: Family Housing: House Tobacco History Smoking Status: Never smoker Second Hand Smoke Exposure: No Alcohol History Alcohol Intake: Never Domestic Abuse History Do You Feel Safe at Home: Yes Office Procedures [facility] LOC & Office Proc's Nursing/Assessment Patient Status: Established Patient OB Clinic Nursing Assessment: Medication Reconciliation, Update PMH in EMR and Vital Signs OB Clinic Coordination of Care: Complex Care and Chronic Disease 1-5, Education Complex Pt/Fam, Consent,records obtained, informed consent, Lab and Imaging orders, Results/Orders obtained and Staff clarify orders Established Patient Charge Established Patient Point Assignment: 110 Established Patient Point Charge: EP Level 3 (80-115) Assessment & Plan Diagnosis / Problem List (1) Amenorrhea:
== END 2025-04-20 10:49 | disposition home or self-care (01) ==
PROVIDERS: Supervising Provider Obstetrics & Gynecology; Visit Provider Obstetrics & Gynecology
DX: N91.2 Amenorrhea, unspecified (principal)
CPT/HCPCS: 99213; G0463